=== PATIENT | male | born 1990 | race Caucasian/White ===

== ENCOUNTER 2018-05-03 19:12 | Emergency (ER) | payer OTHER ==
[~2018-05-03] VITALS: Ht 193 cm; Wt 105.5 kg
[2018-05-03 19:17] VITALS: BP 151/94
[2018-05-03] MEDS ORDERED: metroNIDAZOLE 500mg tablet PO ONE (20:20)
[2018-05-03] MEDS ORDERED: ondansetron 4mg rapidly disintigrating tab PO ONE (20:20)
[2018-05-03] MEDS ORDERED: CefTRIAXone 1000mg IM Kit (w/lidocaine diluent) IM ONE (20:20)
[2018-05-03] MEDS ORDERED: azithromycin 250mg tablet PO ONE (20:20)
== END 2018-05-03 21:14 | disposition home or self-care (01) ==
LOC: ER 19:13
DX: A64 Unspecified sexually transmitted disease (principal); Z88.1 Allergy status to other antibiotic agents; Z79.899 Other long term (current) drug therapy
CPT/HCPCS: 96372; 99284; J0696; J3490